=== PATIENT | male | born 1935 | race Hispanic/Latino ===

== ENCOUNTER 2018-05-12 06:41 | Day surgery (SDC) | payer OTHER, MEDICARE ==
[2018-05-12 07:08] VITALS: BMI 30.4
[2018-05-12] MEDS ORDERED: Lactated Ringer's 1,000 ML IV ONE (09:16)
--- NOTE | 2018-05-12 09:22 | CP.SDSHP ---
Same Day Surgery H & P - History Proposed Procedure: EGD and Colonoscopy Pre-Op Diagnosis: History of gastric ulcers/ screening colonoscopy - Previous Medical/Surgical History Cardiac: Hypertension, ASHD/CAD, Arrhythmia Previous Surgical History: bladder cancer, pacemaker, cholecystectomy - Allergies Allergies: Allergies No Known Allergies Allergy (Verified 06/10/13 10:04) - Current Medications Current Medications: reviewed, per reconciliation - Physical Exam General Appearance: wdwn nad Vital Signs: Vital Signs 05/12/18 07:14 Temperature 97.6 F Pulse Rate 80 Respiratory 17 Rate Blood Pressure 108/50 L O2 Sat by Pulse 97 Oximetry Mental Status: Alert & Oriented x3 Heart: WNL Lungs: WNL GI: WNL - {Optional Preform as Required} Abdomen: WNL - Impression Impression: surveillance of gastric ulcers, and screening for colorectal neoplasm Pt. Evaluated Today:Candidate for Anesthesia & Procedure: Yes - Date & Time Date: 05/12/18 Time: 09:22 Short Stay Discharge - Short Stay Discharge Admitting Diagnosis/Reason for Visit: SCREENING / GASTRIC ULCER Disposition: HOME/ ROUTINE
[2018-05-12] MEDS ORDERED: Propofol 10 mg/ml Inj (20 ML) ONE (09:27)
[2018-05-12] MEDS ORDERED: Lidocaine Hydrochloride 5 ML INJ ONE (09:45)
[2018-05-12 10:02] VITALS: TEMP 97.3
[2018-05-12 11:14] VITALS: BP 121/76; PULSE 69; RESP 14; O2SAT 99
== END 2018-05-12 11:10 | disposition home or self-care (01) ==
LOC: C.ENDO 06:41
PROVIDERS: ATTEND Internal Medicine Gastroenterology
DX: Z12.11 Encounter for screening for malignant neoplasm of colon (principal); K64.0 First degree hemorrhoids; K57.30 Diverticulosis of large intestine without perforation or abscess without bleeding; Z87.11 Personal history of peptic ulcer disease; I25.10 Atherosclerotic heart disease of native coronary artery without angina pectoris; Z95.5 Presence of coronary angioplasty implant and graft; I10 Essential (primary) hypertension; I49.9 Cardiac arrhythmia, unspecified; Z95.0 Presence of cardiac pacemaker; E78.5 Hyperlipidemia, unspecified; Z85.51 Personal history of malignant neoplasm of bladder; Z98.890 Other specified postprocedural states; Z90.49 Acquired absence of other specified parts of digestive tract; Z79.899 Other long term (current) drug therapy
CPT/HCPCS: 43235; G0121; J2704; J7120

== ENCOUNTER 2018-12-31 06:53 | Outpatient (CLI) | payer MEDICARE, OTHER | END 2018-12-31 06:54 | disposition home or self-care (01) | LOC: C.CARD 06:53 ==

== ENCOUNTER 2019-02-24 09:12 | Outpatient (CLI) | payer MEDICARE, OTHER | END 2019-02-24 09:13 | disposition home or self-care (01) | LOC: C.CARD 09:12 | DX: I25.10 Atherosclerotic heart disease of native coronary artery without angina pectoris (principal) ==

== ENCOUNTER 2019-04-14 14:27 | Outpatient (CLI) | payer MEDICARE, OTHER | END 2019-04-14 14:28 | disposition home or self-care (01) | LOC: C.USIC 14:27 | DX: N18.3 Chronic kidney disease, stage 3 (moderate) (principal) ==